=== PATIENT | male | born 1990 | race American Indian/Alaskan Native ===

== ENCOUNTER 2019-01-11 06:46 | Emergency (ER) | payer OTHER ==
[2019-01-11] MEDS ORDERED: BOOSTRIX IM ONE (07:17)
[2019-01-11] MEDS ORDERED: BACTRIM DS PO ONE (07:17)
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
[2019-01-11 07:57] LABS: Basophils # (Auto) 0.1 K/mm3 (0.0-0.1); Basophils % (Auto) 0.4 % (0.0-1.8); Eosinophils # (Auto) 0.2 K/mm3 (0.0-0.4); Hematocrit 42.1 % (35.5-45.6); Lymphocytes # (Auto) 2.6 K/mm3 (1.2-5.4); Lymphocytes % (Auto) 20.6 % (13.4-35.0); Mean Corpuscular HGB Conc 33 % (32-34); Mean Corpuscular Volume 91 fl (84-94); Monocytes # (Auto) 0.7 K/mm3 (0.0-0.8); Monocytes % (Auto) 5.5 % (0.0-7.3); Platelet Count 352 K/mm3 (140-440); Red Blood Count 4.62 M/mm3 (3.65-5.03)
[2019-01-11 08:18] LABS: BUN/Creatinine Ratio 10; Blood Urea Nitrogen 9 mg/dL (9-20); Calcium 8.8 mg/dL (8.4-10.2); Hemolysis Index 11
[2019-01-11] MEDS ORDERED: K-DUR PO ONE (08:25)
[2019-01-11] MEDS ORDERED: XYLOCAINE 1% MPF 5 mL INFILTRATI ONE (08:34)
[2019-01-11 10:22] LABS: Bacteria,Urine 1+ /HPF (Negative); Bilirubin,Urine NEG (Negative); Blood,Urine MOD (Negative); Color,Urine Yellow (Yellow); Mucus,Urine 2+ /HPF
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
[2019-01-11 13:03] VITALS: BP 119/65
== END 2019-01-11 13:12 ==
LOC: ED 06:46
DX: S41.111A Laceration without foreign body of right upper arm, initial encounter (principal); S31.23XA Puncture wound without foreign body of penis, initial encounter; X99.9XXA Assault by unspecified sharp object, initial encounter; Y93.89 Activity, other specified; Y92.89 Other specified places as the place of occurrence of the external cause; Y99.8 Other external cause status
CPT/HCPCS: 12002; 36415; 51610; 73060; 74450; 80048; 81001; 85025; 87086; 90471; 90715; 99283; Q9967; 80320; G0480